=== PATIENT | male | born 1985 | race Two or more races ===

== ENCOUNTER 2021-02-03 17:44 | Emergency (ER) | payer SELFPAY ==
[~2021-02-03] VITALS: Ht 162.6 cm; Wt 68.0 kg
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
--- NOTE | 2021-02-03 17:56 | NUR ---
PATIENT LEFT FOR CT SCAN
[2021-02-03] MEDS ORDERED: TDAP [DIPH/PERTUSSIS/TET] 0.5 ML VIAL IM ONE (18:15)
[2021-02-03] MEDS: TDAP [DIPH/PERTUSSIS/TET] 0.5 ML VIAL IM ONE (18:19)
[2021-02-03] MEDS ORDERED: LIDOCAINE 1%-EPI 1:100,000 20 ML VIAL ONE (19:18)
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
[2021-02-03] MEDS ORDERED: ACETAMINOPHEN ES 500 MG TABLET ONE (19:46)
[2021-02-03] MEDS: ACETAMINOPHEN ES 500 MG TABLET PO ONE (19:53)
[2021-02-03] MEDS ORDERED: LIDOCAINE 2% JEL UROJET 10 ML MM ONE (20:02)
[2021-02-03] MEDS: IV NS 0.9% 1,000 ML BAG IV ONE (20:02)
[2021-02-03 20:13] LABS: BASOPHILS # (AUTO) 0.1 /CMM (0.0-0.2); BASOPHILS % (AUTO) 0.3 % (0.0-2.0); EOSINOPHILS % (AUTO) 0.3 % (0.0-6.0); HEMATOCRIT 45 % (39-51); HEMOGLOBIN 14.7 g/dL (13.5-17.5); LYMPHOCYTES # (AUTO) 1.6 /CMM (0.8-4.8); LYMPHOCYTES % (AUTO) 6.6 % (20.0-44.0); MEAN CORPUSCULAR HGB CONC 33 g/dl (31.0-36.0); MEAN CORPUSCULAR VOLUME 86 fL (80-96); MONOCYTES # (AUTO) 1.5 /CMM (0.1-1.30); MONOCYTES % (AUTO) 6.4 % (2.0-12.0); NEUTROPHILS # (AUTO) 20.7 /CMM (1.8-8.9); NEUTROPHILS % (AUTO) 86.4 % (43.0-81.0); PLATELET COUNT (AUTO) 281 /CMM (150-450); RED BLOOD CELL COUNT(AUTO) 5.23 MIL/uL (4.5-6.0); WHITE BLOOD COUNT (AUTO) 23.9 K/uL (4.3-11.0)
[2021-02-03 20:25] LABS: ACETAMINOPHEN < 10 ug/ml (10-30); ALANINE AMINOTRANSFERASE 42 U/L (12-78); ALBUMIN 4.2 g/dL (3.4-5.0); ALCOHOL, BLOOD < 3 mg/dL (0-0); ALKALINE PHOSPHATASE 93 U/L (46-116); ASPARTATE AMINOTRANSFERASE 27 U/L (15-37); BILIRUBIN,DIRECT 0.1 mg/dL (0.0-0.2); BILIRUBIN,TOTAL 0.4 mg/dL (0.2-1.0); CALCIUM, SERUM 9.2 mg/dL (8.5-10.1); CARBON DIOXIDE 27 mmol/L (21-32); CHLORIDE 102 mmol/L (98-107); CREATININE 1.4 mg/dL (0.6-1.3); GLUCOSE 126 mg/dL (74-106); POTASSIUM 4.1 mmol/L (3.5-5.1); SODIUM SERUM 139 mmol/L (136-145); TOTAL PROTEIN, SERUM 7.9 g/dL (6.4-8.2); UREA NITROGEN, BLOOD 22 mg/dL (7-18)
[2021-02-03] MEDS: LIDOCAINE 1%-EPI 1:100,000 50 ML VIAL IJ ONE (20:32)
--- NOTE | 2021-02-03 21:00 | NUR ---
ct neg. pt on obs. vss. nad.
[2021-02-03 21:09] LABS: BILIRUBIN,URINE NEGATIVE (NEGATIVE); COLOR,URINE YELLOW (YELLOW); LEUKOCYTE ESTERASE ,URINE NEGATIVE (NEGATIVE); NITRITE, URINE NEGATIVE (NEGATIVE); PH,URINE 5.5 (5.0-8.0); PROTEIN,URINE 100 mg/dl (NEGATIVE); UGLUCOSE NEGATIVE (NEGATIVE); UROBILINOGEN,URINE 0.2 EU/dL (0.2)
[2021-02-03 21:32] LABS: BACTERIA,URINE 1+ /HPF (None Seen)
[2021-02-03 21:33] LABS: URINE AMORPHOUS URATE Few /HPF (None Seen)
[2021-02-03 21:43] LABS: SQUAMOUS EPITHELIAL CELL,UR 0-2 /HPF (None Seen)
--- NOTE | 2021-02-04 05:00 | NUR ---
pt awake, alert, ambulated to bathroom with steady gait. neg for etoh. pt VSS. pt wants to go. D/C papers given. nad.
[2021-02-04 06:49] VITALS: BP 123/56
== END 2021-02-04 05:00 | disposition home or self-care (01) ==
LOC: ER 17:45
DX: S01.01XA Laceration without foreign body of scalp, initial encounter (principal); R00.0 Tachycardia, unspecified; D72.829 Elevated white blood cell count, unspecified; Y08.89XA Assault by other specified means, initial encounter; Y93.89 Activity, other specified; Y92.89 Other specified places as the place of occurrence of the external cause; Y99.8 Other external cause status
CPT/HCPCS: 12002; 36415; 70450; 71045; 72125; 80048; 80076; 80299; 80307; 80320; 81001; 84484; 85025; 90471; 90715; 93005; 96360; 99285; A6403; J3490 ×3; J7030; 87086-TC; G0480